=== PATIENT | male | born 1975 ===

== ENCOUNTER 2018-04-24 23:06 | Inpatient (IN) ==
[2018-04-24] MEDS ORDERED: MORPHINE 4 MG/1 ML VIAL IV STA (23:39)
[2018-04-24] MEDS ORDERED: ONDANSETRON 4 MG/2 ML VIAL IV ONE (23:39)
[2018-04-24] MEDS ORDERED: SODIUM CHLORIDE 0.9% 1,000 ML IV STA (23:39)
[2018-04-25 00:26] LABS: Basophils % 0.6 % (0.0-0.8); Eosinophils # 0.1 10*3/uL (0.0-0.87); Hemoglobin 12.7 GM/DL (14.0-18.0); Immature Granulocytes % 2.4 %; Immature Granulocytes Absolute 0.17 #; Lymphocytes # 2.2 10*3/uL (1.4-4.0); Lymphocytes % 31.1 % (21.2-54.2); Mean Corpuscular HGB Conc 34.3 GM/DL (32-36); Mean Corpuscular Hemoglobin 31 PG (27-34); Mean Corpuscular Volume 91.1 FL (87-102); Mean Platelet Volume 9.7 FL (9.6-12.0); Monocytes # 0.9 10*3/uL (0.11-0.8); Monocytes % 12.7 % (1.7-12.7); Neutrophils # 3.7 10*3/uL (1.4-7.4); Neutrophils % 52.2 % (38.7-73.9); Platelet Count 273 T/CUMM (130-400); Red Blood Count 4.06 MC/CUMM (3.8-5.5); Red Cell Distribution Width 13.4 % (9.3-17.3); White Blood Count 7.1 T/CUMM (4-12)
[2018-04-25 00:56] LABS: Alanine Aminotransferase 64 U/L (16-61); Albumin 3.4 G/DL (3.4-5.0); Alkaline Phosphatase 99 U/L (45-117); Aspartate Amino Transferase 29 U/L (0-37); Bilirubin,Total < 0.39 MG/DL (0.2-1.0); Blood Urea Nitrogen 7 MG/DL (7-18); Calcium 7.9 MG/DL (8.5-10.1); Glucose 317 MG/DL (74-106); Osmolality,Calculated 282.8 MOS/KG (273-304); Sodium 137 MMOL/L (136-145); Total Protein 7.7 G/DL (6.4-8.3)
[2018-04-25] MEDS ORDERED: MORPHINE 4 MG/1 ML VIAL IV STA (02:07)
[2018-04-25] MEDS ORDERED: PROMETHAZINE 25 MG/1 ML VIAL IM PRN (04:50)
[2018-04-25] MEDS ORDERED: DEXTROSE 50% 25 GM/50 ML VIAL IV PRN (04:50)
[2018-04-25] MEDS ORDERED: GLUCAGON 1 MG VIAL IM PRN (04:50)
[2018-04-25] MEDS ORDERED: LORazepam 2 MG/1 ML VIAL IV PRN (04:50)
[2018-04-25] MEDS ORDERED: amLODIPine 10 MG TABLET PO ONE (05:00)
[2018-04-25] MEDS: ONDANSETRON 4 MG/2 ML VIAL IV PRN ×3 (05:03→18:19)
[2018-04-25] MEDS: SODIUM CHLORIDE 0.9% 1,000 ML IV SCH ×2 (05:03→13:05)
[2018-04-25] MEDS: MORPHINE 4 MG/1 ML VIAL IV PRN ×6 (05:05→21:14)
[2018-04-25] MEDS: chlordiazePOXIDE 10 MG CAPSULE PO SCH ×4 (05:14→20:27)
[2018-04-25] MEDS ORDERED: PANTOPRAZOLE 40 MG VIAL IV SCH (05:30)
[2018-04-25] MEDS: INSULIN REGULAR 100 UNIT/ML SUBCUT SCH ×4 (06:15→18:23)
[2018-04-25] MEDS ORDERED: POTASSIUM CHLORIDE 20 MEQ TABLET PO PRN (06:33)
[2018-04-25 06:46] LABS: Hematocrit 33.9 VOL% (42.0-52.0); Hemoglobin 12.1 GM/DL (14.0-18.0)
[2018-04-25] MEDS ORDERED: metFORMIN 500 MG TABLET PO SCH (08:00)
[2018-04-25] MEDS: FOLIC ACID 1 MG TABLET PO SCH (08:42)
[2018-04-25] MEDS: THIAMINE 100 MG TABLET PO SCH (08:42)
[2018-04-25] MEDS: MULTIVITAMIN (BEROCCA) TABLET PO SCH (08:42)
[2018-04-25] MEDS ORDERED: MAGNESIUM SULF RIDER 4 GM in PREMIX 1 EACH IV PRN (09:12)
[2018-04-25] MEDS ORDERED: MAGNESIUM SULF RIDER 2 GM in PREMIX 1 EACH IV PRN (09:12)
[2018-04-25] MEDS: PANTOPRAZOLE INJ 200 MG in SODIUM CHLORIDE 0.9% 250 ML IV SCH (10:28)
[2018-04-25] MEDS: hydrALAZINE 20 MG/1 ML VIAL IV PRN (11:20)
[2018-04-25] MEDS: THIAMINE INJ 100 MG, FOLIC ACID INJ 1 MG, MAGNESIUM SULF INJ 2 GM, MULTIVITAMIN INJ 10 ... IV SCH (13:03)
[2018-04-25 21:12] LABS: Hematocrit 35.3 VOL% (42.0-52.0); Hemoglobin 12.1 GM/DL (14.0-18.0)
[2018-04-25 23:50] LABS: Apearance,Urine CLEAR (Clear); Bacteria,Urine Occasional /HPF (Few); Bilirubin,Urine Negative (Negative); Blood, Urine Negative (Negative); Glucose,Urine (UA) >=500 mg/dL (Negative); Ketones,Urine Negative (Negative); Mucus,Urine Occasional /LPF (Occasional); Nitrite,Urine Negative (Negative); Protein,Urine Negative; RBC,Urine <1 /HPF (0-4); Urine Color Yellow (Yellow); Urine Specific Gravity 1.015 (1.001-1.035); Urine Urobilinogen < 2.0 EU/DL (0.2-1.0); WBC,Urine 1 /HPF (0-6)
[2018-04-26] MEDS: MORPHINE 4 MG/1 ML VIAL IV PRN ×3 (00:10→06:10)
[2018-04-26] MEDS: INSULIN REGULAR 100 UNIT/ML SUBCUT SCH ×3 (00:24→12:44)
[2018-04-26] MEDS: SODIUM CHLORIDE 0.9% 1,000 ML IV SCH ×3 (00:26→16:52)
[2018-04-26] MEDS ORDERED: PROPOFOL 200 MG/20 ML VIAL IV ONE (02:49)
[2018-04-26] MEDS ORDERED: LIDOCAINE 100 MG/5 ML SYRINGE ONE (02:49)
[2018-04-26 05:53] LABS: Basophils % 0.7 % (0.0-0.8); Eosinophils # 0.1 10*3/uL (0.0-0.87); Eosinophils % 2.2 % (0.00-10.9); Hematocrit 34.4 VOL% (42.0-52.0); Immature Granulocytes % 1.1 %; Immature Granulocytes Absolute 0.05 #; Lymphocytes # 1.4 10*3/uL (1.4-4.0); Lymphocytes % 32.1 % (21.2-54.2); Mean Corpuscular HGB Conc 34.9 GM/DL (32-36); Mean Corpuscular Hemoglobin 32 PG (27-34); Mean Corpuscular Volume 90.8 FL (87-102); Mean Platelet Volume 9.4 FL (9.6-12.0); Monocytes # 0.6 10*3/uL (0.11-0.8); Monocytes % 12.4 % (1.7-12.7); Neutrophils # 2.3 10*3/uL (1.4-7.4); Neutrophils % 51.5 % (38.7-73.9); Platelet Count 202 T/CUMM (130-400); Red Blood Count 3.79 MC/CUMM (3.8-5.5); Red Cell Distribution Width 13.2 % (9.3-17.3); White Blood Count 4.5 T/CUMM (4-12)
[2018-04-26 06:25] LABS: Albumin 2.9 G/DL (3.4-5.0); Bilirubin,Total 0.4 MG/DL (0.2-1.0); Calcium 7.4 MG/DL (8.5-10.1); Osmolality,Calculated 277.4 MOS/KG (273-304); Total Protein 6.6 G/DL (6.4-8.3)
[2018-04-26] MEDS ORDERED: POTASSIUM PHOSPHATE 30 MMOL in SODIUM CHLORIDE 0.9% 250 ML IV ONE (07:22)
[2018-04-26] MEDS ORDERED: POTASSIUM CHLORIDE RIDER 10 MEQ in PREMIX 1 EACH IV STA (07:23)
[2018-04-26] MEDS: THIAMINE INJ 100 MG, FOLIC ACID INJ 1 MG, MAGNESIUM SULF INJ 2 GM, MULTIVITAMIN INJ 10 ... IV SCH (11:37)
[2018-04-26] MEDS ORDERED: BISACODYL 5 MG TABLET PO SCH (15:00)
[2018-04-26] MEDS ORDERED: MORPHINE 4 MG/1 ML VIAL IV PRN (16:01)
[2018-04-26] MEDS: FOLIC ACID 1 MG TABLET PO SCH (16:11)
[2018-04-26] MEDS: chlordiazePOXIDE 10 MG CAPSULE PO SCH ×2 (16:11→16:12)
[2018-04-26] MEDS: THIAMINE 100 MG TABLET PO SCH (16:12)
[2018-04-26] MEDS: MULTIVITAMIN (BEROCCA) TABLET PO SCH (16:12)
[2018-04-26] MEDS: hydrALAZINE 20 MG/1 ML VIAL IV PRN (16:48)
[2018-04-26] MEDS: PANTOPRAZOLE INJ 200 MG in SODIUM CHLORIDE 0.9% 250 ML IV SCH (16:54)
[2018-04-26 17:46] VITALS: BP 163/108
[2018-04-26] MEDS ORDERED: POLYETHYLENE GLYCOL POWDER 255 GM BOTTLE PO ONE (18:00)
[2018-04-26] MEDS ORDERED: MAGNESIUM CITRATE 300 ML BOTTLE PO ONE (21:00)
[2018-04-27] MEDS ORDERED: PANTOPRAZOLE 40 MG TABLET PO SCH (09:00)
== END 2018-04-26 17:43 | disposition left against medical advice (07) | DRG 378 ==
LOC: N.ED 23:06 → N.EDINP 04-25 02:49 → N.4E 04-25 04:06

== ENCOUNTER 2018-04-28 22:24 | Inpatient (IN) ==
[2018-04-28] MEDS ORDERED: PANTOPRAZOLE 40 MG VIAL IV STA (23:06)
[2018-04-28] MEDS ORDERED: ONDANSETRON 4 MG/2 ML VIAL IV STA (23:06)
[2018-04-28] MEDS ORDERED: SODIUM CHLORIDE 0.9% 500 ML IV STA (23:06)
[2018-04-28] MEDS ORDERED: HYDROmorphone 2 MG/1 ML VIAL IV STA (23:06)
[2018-04-29 00:51] LABS: Apearance,Urine CLEAR (Clear); Bilirubin,Urine Negative (Negative); Blood, Urine Negative (Negative); Glucose,Urine (UA) >=500 mg/dL (Negative); Ketones,Urine Negative (Negative); Mucus,Urine Occasional /LPF (Occasional); Nitrite,Urine Negative (Negative); Protein,Urine Negative; RBC,Urine 1 /HPF (0-4); Squamous Epithelial Cell,Urine Occasional /HPF (0-10); Urine Color Straw (Yellow); Urine Specific Gravity 1.012 (1.001-1.035); Urine Urobilinogen < 2.0 EU/DL (0.2-1.0); WBC,Urine <1 /HPF (0-6)
[2018-04-29 00:54] LABS: Ammonia 50 UMOL/L (11-32)
[2018-04-29 00:57] LABS: Basophils % 0.4 % (0.0-0.8); Eosinophils # 0.1 10*3/uL (0.0-0.87); Eosinophils % 1.2 % (0.00-10.9); Hematocrit 34.2 VOL% (42.0-52.0); Hemoglobin 11.7 GM/DL (14.0-18.0); Immature Granulocytes % 2.9 %; Lactic Acid 1.9 MMOL/L (0.4-2.0); Lymphocytes # 1.9 10*3/uL (1.4-4.0); Lymphocytes % 27.5 % (21.2-54.2); Mean Corpuscular HGB Conc 34.2 GM/DL (32-36); Mean Corpuscular Hemoglobin 32 PG (27-34); Mean Corpuscular Volume 92.9 FL (87-102); Mean Platelet Volume 9.9 FL (9.6-12.0); Monocytes # 0.6 10*3/uL (0.11-0.8); Monocytes % 9.1 % (1.7-12.7); Neutrophils % 58.9 % (38.7-73.9); Platelet Count 208 T/CUMM (130-400); Red Blood Count 3.68 MC/CUMM (3.8-5.5); Red Cell Distribution Width 13.6 % (9.3-17.3); White Blood Count 6.8 T/CUMM (4-12)
[2018-04-29 00:59] LABS: Alanine Aminotransferase 83 U/L (16-61); Albumin 3.1 G/DL (3.4-5.0); Alkaline Phosphatase 175 U/L (45-117); Amylase 35 U/L (25-115); Aspartate Amino Transferase 50 U/L (0-37); Bilirubin,Total < 0.39 MG/DL (0.2-1.0); Blood Urea Nitrogen 7 MG/DL (7-18); Glucose 395 MG/DL (74-106); Osmolality,Calculated 288.7 MOS/KG (273-304); Potassium 3.3 MMOL/L (3.5-5.1); Sodium 138 MMOL/L (136-145); Total Protein 7.3 G/DL (6.4-8.3); Troponin I Only < 0.015 NG/ML (0.00-0.045)
[2018-04-29 01:01] LABS: Barbiturates Screen,Urine Negative (Negative); Benzodiazepines Screen,Urine Positive (Negative); Cannabinoid Screen,Urine Negative (Negative); Opiate Screen,Urine Negative (Negative); Phencyclidine Screen,Urine Negative (Negative)
[2018-04-29] MEDS ORDERED: MAGNESIUM SULF RIDER 2 GM in PREMIX 1 EACH IV STA (01:15)
[2018-04-29] MEDS ORDERED: POTASSIUM CHLORIDE 20 MEQ TABLET PO STA (01:15)
[2018-04-29] MEDS ORDERED: POTASSIUM CHLORIDE RIDER 10 MEQ in PREMIX 1 EACH IV PRN (04:16)
[2018-04-29] MEDS ORDERED: GLUCAGON 1 MG VIAL IM PRN (04:16)
[2018-04-29] MEDS ORDERED: MAGNESIUM SULF RIDER 2 GM in PREMIX 1 EACH IV PRN (04:16)
[2018-04-29] MEDS ORDERED: DEXTROSE 50% 25 GM/50 ML VIAL IV PRN (04:16)
[2018-04-29] MEDS ORDERED: SODIUM CHLORIDE 0.9% 1,000 ML IV SCH (04:16)
[2018-04-29] MEDS ORDERED: ONDANSETRON 4 MG/2 ML VIAL IV PRN (04:16)
[2018-04-29] MEDS ORDERED: PROMETHAZINE 25 MG/1 ML VIAL IM PRN (04:16)
[2018-04-29] MEDS ORDERED: LORazepam 2 MG/1 ML VIAL IV PRN (04:16)
[2018-04-29] MEDS ORDERED: MAGNESIUM SULF RIDER 4 GM in PREMIX 1 EACH IV PRN (04:16)
[2018-04-29] MEDS: 1: THIAMINE INJ 100 MG, FOLIC ACID INJ 1 MG, MAGNESIUM SULF INJ 2 GM, MULTIVITAMIN INJ 1 IV SCH ×2 (06:05→15:37)
[2018-04-29] MEDS: INSULIN REGULAR 100 UNIT/ML SUBCUT SCH ×3 (06:35→19:14)
[2018-04-29] MEDS ORDERED: PANTOPRAZOLE 40 MG VIAL IV SCH (09:00)
[2018-04-29] MEDS ORDERED: THIAMINE INJ 100 MG, FOLIC ACID INJ 1 MG, MAGNESIUM SULF INJ 2 GM, MULTIVITAMIN INJ 10 ... IV SCH (09:00)
[2018-04-29] MEDS: BISACODYL 5 MG TABLET PO SCH ×2 (11:05→18:25)
[2018-04-29] MEDS: chlordiazePOXIDE 10 MG CAPSULE PO SCH ×2 (11:05→15:44)
[2018-04-29] MEDS ORDERED: ACETAMINOPHEN 500 MG TABLET PO PRN (13:42)
[2018-04-29] MEDS ORDERED: POLYETHYLENE GLYCOL POWDER 255 GM BOTTLE PO ONE (18:00)
[2018-04-29] MEDS: chlordiazePOXIDE 25 MG CAPSULE PO SCH ×2 (18:16→20:32)
[2018-04-29] MEDS ORDERED: MAGNESIUM CITRATE 300 ML BOTTLE PO ONE (21:00)
[2018-04-30] MEDS: 1: THIAMINE INJ 100 MG, FOLIC ACID INJ 1 MG, MAGNESIUM SULF INJ 2 GM, MULTIVITAMIN INJ 1 IV SCH ×3 (02:32→23:20)
[2018-04-30] MEDS: BISACODYL 5 MG TABLET PO SCH (02:33)
[2018-04-30] MEDS: INSULIN REGULAR 100 UNIT/ML SUBCUT SCH ×5 (02:41→23:40)
[2018-04-30 07:04] LABS: Calcium 7.5 MG/DL (8.5-10.1); Osmolality,Calculated 279.4 MOS/KG (273-304); Potassium 3.3 MMOL/L (3.5-5.1)
[2018-04-30 07:10] LABS: Bilirubin,Total 0.6 MG/DL (0.2-1.0); Calcium 7.6 MG/DL (8.5-10.1); Osmolality,Calculated 281.3 MOS/KG (273-304); Potassium 3.3 MMOL/L (3.5-5.1); Total Protein 6.7 G/DL (6.4-8.3)
[2018-04-30 07:55] LABS: Basophils % 0.5 % (0.0-0.8); Eosinophils # 0.1 10*3/uL (0.0-0.87); Eosinophils % 2.3 % (0.00-10.9); Hematocrit 33.7 VOL% (42.0-52.0); Hemoglobin 11.6 GM/DL (14.0-18.0); Immature Granulocytes % 1.6 %; Lymphocytes # 1.7 10*3/uL (1.4-4.0); Lymphocytes % 27.2 % (21.2-54.2); Mean Corpuscular HGB Conc 34.4 GM/DL (32-36); Mean Corpuscular Hemoglobin 32 PG (27-34); Mean Corpuscular Volume 92.3 FL (87-102); Mean Platelet Volume 10.2 FL (9.6-12.0); Monocytes # 0.6 10*3/uL (0.11-0.8); Monocytes % 9.5 % (1.7-12.7); Neutrophils # 3.6 10*3/uL (1.4-7.4); Neutrophils % 58.9 % (38.7-73.9); Platelet Count 202 T/CUMM (130-400); Red Blood Count 3.65 MC/CUMM (3.8-5.5); Red Cell Distribution Width 13.4 % (9.3-17.3); White Blood Count 6.1 T/CUMM (4-12)
[2018-04-30] MEDS ORDERED: LIDOCAINE 100 MG/5 ML SYRINGE ONE (08:18)
[2018-04-30] MEDS ORDERED: PROPOFOL 200 MG/20 ML VIAL IV ONE (08:18)
[2018-04-30] MEDS ORDERED: POTASSIUM CHLORIDE 20 MEQ TABLET PO ONE (08:55)
[2018-04-30] MEDS: chlordiazePOXIDE 25 MG CAPSULE PO SCH ×4 (10:08→21:38)
[2018-04-30] MEDS: PANTOPRAZOLE 40 MG TABLET PO SCH (10:08)
[2018-04-30] MEDS: LINACLOTIDE 145 MCG CAPSULE PO SCH (10:08)
[2018-04-30] MEDS: amLODIPine 10 MG TABLET PO SCH (13:14)
[2018-04-30] MEDS ORDERED: chlordiazePOXIDE 25 MG CAPSULE PO ONE (14:07)
[2018-05-01 05:25] LABS: Basophils % 0.3 % (0.0-0.8); Eosinophils # 0.1 10*3/uL (0.0-0.87); Eosinophils % 1.8 % (0.00-10.9); Hematocrit 33.7 VOL% (42.0-52.0); Hemoglobin 11.9 GM/DL (14.0-18.0); Immature Granulocytes % 1.6 %; Immature Granulocytes Absolute 0.11 #; Lymphocytes # 1.5 10*3/uL (1.4-4.0); Lymphocytes % 21.9 % (21.2-54.2); Mean Corpuscular HGB Conc 35.3 GM/DL (32-36); Mean Corpuscular Hemoglobin 31 PG (27-34); Mean Corpuscular Volume 88.9 FL (87-102); Mean Platelet Volume 9.9 FL (9.6-12.0); Monocytes # 0.6 10*3/uL (0.11-0.8); Monocytes % 8.7 % (1.7-12.7); Neutrophils # 4.5 10*3/uL (1.4-7.4); Neutrophils % 65.7 % (38.7-73.9); Platelet Count 183 T/CUMM (130-400); Red Blood Count 3.79 MC/CUMM (3.8-5.5); Red Cell Distribution Width 13.2 % (9.3-17.3); White Blood Count 6.8 T/CUMM (4-12)
[2018-05-01] MEDS: INSULIN REGULAR 100 UNIT/ML SUBCUT SCH ×2 (06:02→12:47)
[2018-05-01] MEDS: LINACLOTIDE 145 MCG CAPSULE PO SCH (06:31)
[2018-05-01] MEDS: chlordiazePOXIDE 25 MG CAPSULE PO SCH ×2 (06:31→14:49)
[2018-05-01] MEDS: 1: THIAMINE INJ 100 MG, FOLIC ACID INJ 1 MG, MAGNESIUM SULF INJ 2 GM, MULTIVITAMIN INJ 1 IV SCH (08:50)
[2018-05-01] MEDS: amLODIPine 10 MG TABLET PO SCH (08:51)
[2018-05-01] MEDS: PANTOPRAZOLE 40 MG TABLET PO SCH (08:51)
[2018-05-01 17:57] VITALS: BP 98/65
== END 2018-05-01 17:58 | disposition left against medical advice (07) | DRG 392 ==
LOC: EDUNIT# → EDBD → N.ED 22:24 → SUATTDRO 04-29 02:01 → N.EDINP 04-29 02:01 → N.5E 04-29 03:42
PROVIDERS: ADMIT Internal Medicine; ATTEND Internal Medicine

== ENCOUNTER 2018-05-09 19:35 | Inpatient (IN) ==
[2018-05-09] MEDS ORDERED: DIPHENOXYLATE/ATROPINE 2.5-0.025 MG TABLET PO STA (21:29)
[2018-05-09] MEDS ORDERED: ONDANSETRON ODT 4 MG TABLET PO STA (21:30)
[2018-05-09 21:33] LABS: Basophils % 0.6 % (0.0-0.8); Eosinophils # 0.1 10*3/uL (0.0-0.87); Eosinophils % 1.5 % (0.00-10.9); Hematocrit 36.2 VOL% (42.0-52.0); Hemoglobin 12.3 GM/DL (14.0-18.0); Immature Granulocytes % 2.5 %; Immature Granulocytes Absolute 0.12 #; Lymphocytes # 1.4 10*3/uL (1.4-4.0); Lymphocytes % 30.3 % (21.2-54.2); Mean Corpuscular Hemoglobin 32 PG (27-34); Mean Platelet Volume 9.7 FL (9.6-12.0); Monocytes # 0.6 10*3/uL (0.11-0.8); Monocytes % 13.4 % (1.7-12.7); Neutrophils # 2.5 10*3/uL (1.4-7.4); Neutrophils % 51.7 % (38.7-73.9); Platelet Count 243 T/CUMM (130-400); Red Blood Count 3.85 MC/CUMM (3.8-5.5); Red Cell Distribution Width 14.1 % (9.3-17.3); White Blood Count 4.8 T/CUMM (4-12)
[2018-05-09 21:38] LABS: Apearance,Urine CLEAR (Clear); Bacteria,Urine Occasional /HPF (Few); Bilirubin,Urine Negative (Negative); Blood, Urine Small mg/dL (Negative); Glucose,Urine (UA) >=500 mg/dL (Negative); Ketones,Urine Negative (Negative); Mucus,Urine Occasional /LPF (Occasional); Nitrite,Urine Negative (Negative); Protein,Urine Negative; RBC,Urine 1 /HPF (0-4); Squamous Epithelial Cell,Urine Occasional /HPF (0-10); Urine Color Straw (Yellow); Urine Specific Gravity 1.025 (1.001-1.035); Urine Urobilinogen < 2.0 EU/DL (0.2-1.0); WBC,Urine 7 /HPF (0-6)
[2018-05-09 21:46] LABS: Barbiturates Screen,Urine Negative (Negative); Benzodiazepines Screen,Urine Positive (Negative); Cannabinoid Screen,Urine Negative (Negative); Opiate Screen,Urine Negative (Negative); Phencyclidine Screen,Urine Negative (Negative)
[2018-05-09 22:05] LABS: Albumin 3.6 G/DL (3.4-5.0); Bilirubin,Total 0.5 MG/DL (0.2-1.0); Calcium 8.1 MG/DL (8.5-10.1); Osmolality,Calculated 300.5 MOS/KG (273-304); Potassium 3.8 MMOL/L (3.5-5.1); Total Protein 7.6 G/DL (6.4-8.3)
[2018-05-09] MEDS ORDERED: SODIUM CHLORIDE 0.9% 1,000 ML IV STA (22:08)
[2018-05-09] MEDS ORDERED: INSULIN REGULAR 100 UNIT/ML IV STA (22:09)
[2018-05-09] MEDS ORDERED: INSULIN REGULAR 100 UNIT/ML ONE (22:13)
[2018-05-09] MEDS ORDERED: AMPICILLIN/SULBACTAM 3,000 MG in SODIUM CHLORIDE 0.9% 100 ML IV STA (22:40)
[2018-05-09] MEDS ORDERED: MORPHINE 4 MG/1 ML VIAL IV PRN (22:42)
[2018-05-09] MEDS ORDERED: BISACODYL 5 MG TABLET PO PRN (22:42)
[2018-05-09] MEDS ORDERED: DOCUSATE SODIUM 100 MG CAPSULE PO PRN (22:42)
[2018-05-09] MEDS ORDERED: INSULIN REGULAR 100 UNIT/ML IV ONE (22:44)
[2018-05-09] MEDS ORDERED: DEXTROSE 50% 25 GM/50 ML VIAL IV PRN (22:44)
[2018-05-09] MEDS ORDERED: GLUCAGON 1 MG VIAL IM PRN (22:44)
[2018-05-09] MEDS ORDERED: INSULIN REGULAR 100 UNIT/ML SUBCUT ONE (22:44)
[2018-05-09] MEDS ORDERED: LORazepam 2 MG/1 ML VIAL IV PRN (22:49)
[2018-05-09] MEDS ORDERED: ACETAMINOPHEN 325 MG TABLET PO PRN (22:49)
[2018-05-09] MEDS ORDERED: ONDANSETRON ODT 4 MG TABLET PO PRN (22:49)
[2018-05-09] MEDS ORDERED: AMPICILLIN/SULBACTAM 3,000 MG VIAL ONE (23:06)
[2018-05-10] MEDS: MORPHINE 4 MG/1 ML VIAL IV PRN ×6 (01:29→23:37)
[2018-05-10] MEDS: cefTRIAXone 1,000 MG in SYRINGE 1 EACH IV SCH ×2 (01:32→23:34)
[2018-05-10] MEDS: FOLIC ACID 1 MG TABLET PO SCH ×2 (01:32→20:56)
[2018-05-10] MEDS: INSULIN LISPRO 100 UNIT/ML SUBCUT SCH ×3 (01:35→20:55)
[2018-05-10] MEDS: ONDANSETRON 4 MG/2 ML VIAL IV PRN ×2 (01:36→06:37)
[2018-05-10] MEDS: SODIUM CHLORIDE 0.9% 1,000 ML IV SCH ×4 (01:39→20:56)
[2018-05-10 07:07] LABS: Basophils % 0.5 % (0.0-0.8); Eosinophils # 0.1 10*3/uL (0.0-0.87); Eosinophils % 1.6 % (0.00-10.9); Hematocrit 32.7 VOL% (42.0-52.0); Hemoglobin 11.2 GM/DL (14.0-18.0); Immature Granulocytes % 1.6 %; Lymphocytes # 1.6 10*3/uL (1.4-4.0); Lymphocytes % 24.6 % (21.2-54.2); Mean Corpuscular HGB Conc 34.3 GM/DL (32-36); Mean Corpuscular Hemoglobin 32 PG (27-34); Mean Corpuscular Volume 92.4 FL (87-102); Mean Platelet Volume 9.6 FL (9.6-12.0); Monocytes # 0.8 10*3/uL (0.11-0.8); Monocytes % 12.4 % (1.7-12.7); Neutrophils # 3.7 10*3/uL (1.4-7.4); Neutrophils % 59.3 % (38.7-73.9); Platelet Count 212 T/CUMM (130-400); Red Blood Count 3.54 MC/CUMM (3.8-5.5); Red Cell Distribution Width 14.1 % (9.3-17.3); White Blood Count 6.3 T/CUMM (4-12)
[2018-05-10 07:46] LABS: Albumin 2.9 G/DL (3.4-5.0); Bilirubin,Total 0.6 MG/DL (0.2-1.0); Calcium 7.9 MG/DL (8.5-10.1); Osmolality,Calculated 276.5 MOS/KG (273-304); Potassium 3.3 MMOL/L (3.5-5.1); Total Protein 6.6 G/DL (6.4-8.3)
[2018-05-10] MEDS ORDERED: INSULIN LISPRO 100 UNIT/ML SUBCUT SCH (08:00)
[2018-05-10] MEDS ORDERED: metFORMIN 500 MG TABLET PO SCH (08:00)
[2018-05-10] MEDS ORDERED: GLUCAGON 1 MG VIAL IM PRN (08:49)
[2018-05-10] MEDS ORDERED: DEXTROSE 50% 25 GM/50 ML VIAL IV PRN (08:49)
[2018-05-10] MEDS: PANTOPRAZOLE 40 MG TABLET PO SCH (09:30)
[2018-05-10] MEDS: THIAMINE 200 MG/2 ML VIAL IV SCH (09:30)
[2018-05-10] MEDS: MULTIVITAMIN (CENTRUM) TABLET PO SCH (09:30)
[2018-05-10] MEDS: chlordiazePOXIDE 25 MG CAPSULE PO SCH ×3 (09:30→20:56)
[2018-05-10] MEDS: ENOXAPARIN 40 MG/0.4 ML SYRINGE SUBCUT SCH ×2 (09:30→09:45)
[2018-05-10] MEDS: amLODIPine 5 MG TABLET PO SCH (09:37)
[2018-05-10] MEDS: POTASSIUM CHLORIDE RIDER 10 MEQ in PREMIX 1 EACH IV SCH ×4 (09:38→14:45)
[2018-05-10] MEDS ORDERED: MAGNESIUM SULF RIDER 2 GM in PREMIX 1 EACH IV ONE (21:00)
[2018-05-11] MEDS: INSULIN LISPRO 100 UNIT/ML SUBCUT SCH ×5 (00:38→23:59)
[2018-05-11] MEDS: SODIUM CHLORIDE 0.9% 1,000 ML IV SCH ×3 (02:11→18:16)
[2018-05-11] MEDS: MORPHINE 4 MG/1 ML VIAL IV PRN ×5 (03:21→22:23)
[2018-05-11 06:30] LABS: Basophils % 0.4 % (0.0-0.8); Eosinophils # 0.1 10*3/uL (0.0-0.87); Eosinophils % 2.7 % (0.00-10.9); Hematocrit 33.2 VOL% (42.0-52.0); Hemoglobin 11.4 GM/DL (14.0-18.0); Immature Granulocytes % 2.1 %; Lymphocytes # 1.3 10*3/uL (1.4-4.0); Lymphocytes % 26.6 % (21.2-54.2); Mean Corpuscular HGB Conc 34.3 GM/DL (32-36); Mean Corpuscular Hemoglobin 31 PG (27-34); Mean Corpuscular Volume 91.2 FL (87-102); Mean Platelet Volume 9.6 FL (9.6-12.0); Monocytes # 0.6 10*3/uL (0.11-0.8); Monocytes % 13.1 % (1.7-12.7); Neutrophils # 2.6 10*3/uL (1.4-7.4); Neutrophils % 55.1 % (38.7-73.9); Platelet Count 218 T/CUMM (130-400); Red Blood Count 3.64 MC/CUMM (3.8-5.5); Red Cell Distribution Width 13.8 % (9.3-17.3); White Blood Count 4.7 T/CUMM (4-12)
[2018-05-11 07:23] LABS: Calcium 7.6 MG/DL (8.5-10.1); Osmolality,Calculated 272.1 MOS/KG (273-304); Potassium 3.5 MMOL/L (3.5-5.1)
[2018-05-11] MEDS: THIAMINE 200 MG/2 ML VIAL IV SCH (09:33)
[2018-05-11] MEDS: chlordiazePOXIDE 25 MG CAPSULE PO SCH ×3 (09:34→20:11)
[2018-05-11] MEDS: MULTIVITAMIN (CENTRUM) TABLET PO SCH (09:34)
[2018-05-11] MEDS: PANTOPRAZOLE 40 MG TABLET PO SCH (09:34)
[2018-05-11] MEDS: ENOXAPARIN 40 MG/0.4 ML SYRINGE SUBCUT SCH (09:35)
[2018-05-11] MEDS: amLODIPine 5 MG TABLET PO SCH (09:35)
[2018-05-11] MEDS: LISINOPRIL 10 MG TABLET PO SCH ×2 (09:40→20:11)
[2018-05-11] MEDS: FOLIC ACID 1 MG TABLET PO SCH (20:11)
[2018-05-11] MEDS: cefTRIAXone 1,000 MG in SYRINGE 1 EACH IV SCH (22:29)
[2018-05-12] MEDS: SODIUM CHLORIDE 0.9% 1,000 ML IV SCH ×3 (01:56→18:42)
[2018-05-12] MEDS: MORPHINE 4 MG/1 ML VIAL IV PRN ×4 (02:32→15:00)
[2018-05-12] MEDS: INSULIN LISPRO 100 UNIT/ML SUBCUT SCH ×3 (06:26→18:08)
[2018-05-12] MEDS ORDERED: FLUCONAZOLE 100 MG TABLET PO SCH (09:00)
[2018-05-12] MEDS: amLODIPine 5 MG TABLET PO SCH (09:52)
[2018-05-12] MEDS: ENOXAPARIN 40 MG/0.4 ML SYRINGE SUBCUT SCH ×2 (09:52→09:59)
[2018-05-12] MEDS: PANTOPRAZOLE 40 MG TABLET PO SCH (09:52)
[2018-05-12] MEDS: chlordiazePOXIDE 25 MG CAPSULE PO SCH ×3 (09:52→20:52)
[2018-05-12] MEDS: LISINOPRIL 10 MG TABLET PO SCH ×2 (09:52→20:52)
[2018-05-12] MEDS: MULTIVITAMIN (CENTRUM) TABLET PO SCH (09:52)
[2018-05-12] MEDS: THIAMINE 200 MG/2 ML VIAL IV SCH (09:52)
[2018-05-12] MEDS: FLUCONAZOLE INJ 100 MG in IV BAG 1 EACH IV SCH (09:53)
[2018-05-12] MEDS: METOCLOPRAMIDE 10 MG/2 ML VIAL IV SCH (18:17)
[2018-05-12] MEDS: PANTOPRAZOLE 40 MG VIAL IV SCH (20:52)
[2018-05-12] MEDS: FOLIC ACID 1 MG TABLET PO SCH (20:52)
[2018-05-12] MEDS: cefTRIAXone 1,000 MG in SYRINGE 1 EACH IV SCH (22:38)
[2018-05-13] MEDS: METOCLOPRAMIDE 10 MG/2 ML VIAL IV SCH ×4 (00:33→19:03)
[2018-05-13] MEDS: INSULIN LISPRO 100 UNIT/ML SUBCUT SCH ×4 (00:33→19:03)
[2018-05-13] MEDS: SODIUM CHLORIDE 0.9% 1,000 ML IV SCH ×3 (03:28→19:03)
[2018-05-13 04:20] LABS: Basophils % 0.2 % (0.0-0.8); Eosinophils # 0.1 10*3/uL (0.0-0.87); Eosinophils % 2.3 % (0.00-10.9); Hematocrit 31.6 VOL% (42.0-52.0); Hemoglobin 10.9 GM/DL (14.0-18.0); Immature Granulocytes % 3.9 %; Immature Granulocytes Absolute 0.17 #; Lymphocytes # 0.8 10*3/uL (1.4-4.0); Lymphocytes % 18.2 % (21.2-54.2); Mean Corpuscular HGB Conc 34.5 GM/DL (32-36); Mean Corpuscular Hemoglobin 32 PG (27-34); Mean Corpuscular Volume 92.4 FL (87-102); Monocytes # 0.5 10*3/uL (0.11-0.8); Monocytes % 11.3 % (1.7-12.7); Neutrophils # 2.8 10*3/uL (1.4-7.4); Neutrophils % 64.1 % (38.7-73.9); Platelet Count 224 T/CUMM (130-400); Red Blood Count 3.42 MC/CUMM (3.8-5.5); Red Cell Distribution Width 13.8 % (9.3-17.3); White Blood Count 4.3 T/CUMM (4-12)
[2018-05-13 05:02] LABS: Alanine Aminotransferase 29 U/L (16-61); Albumin 2.3 G/DL (3.4-5.0); Alkaline Phosphatase 61 U/L (45-117); Amylase 21 U/L (25-115); Aspartate Amino Transferase 21 U/L (0-37); Bilirubin,Direct < 0.100 MG/DL (0.0-0.20); Bilirubin,Indirect 0.3 MG/DL (0.0-1.0); Bilirubin,Total < 0.39 MG/DL (0.2-1.0); Blood Urea Nitrogen 3 MG/DL (7-18); Calcium 6.8 MG/DL (8.5-10.1); Glucose 100 MG/DL (74-106); Osmolality,Calculated 282.8 MOS/KG (273-304); Potassium 2.9 MMOL/L (3.5-5.1); Sodium 144 MMOL/L (136-145); Total Protein 5.6 G/DL (6.4-8.3)
[2018-05-13] MEDS ORDERED: POTASSIUM CHLORIDE 20 MEQ TABLET PO ONE (06:03)
[2018-05-13] MEDS ORDERED: KETOROLAC 15 MG/1 ML VIAL IV PRN (07:54)
[2018-05-13] MEDS: MULTIVITAMIN (CENTRUM) TABLET PO SCH (09:29)
[2018-05-13] MEDS: POTASSIUM CHLORIDE RIDER 10 MEQ in PREMIX 1 EACH IV SCH ×2 (09:29→10:38)
[2018-05-13] MEDS: PANTOPRAZOLE 40 MG VIAL IV SCH (09:29)
[2018-05-13] MEDS: LISINOPRIL 10 MG TABLET PO SCH (09:29)
[2018-05-13] MEDS: amLODIPine 5 MG TABLET PO SCH (09:29)
[2018-05-13] MEDS: chlordiazePOXIDE 25 MG CAPSULE PO SCH ×2 (09:29→15:22)
[2018-05-13] MEDS: THIAMINE 200 MG/2 ML VIAL IV SCH (09:30)
[2018-05-13] MEDS: ENOXAPARIN 40 MG/0.4 ML SYRINGE SUBCUT SCH (09:30)
[2018-05-13] MEDS: FLUCONAZOLE INJ 100 MG in IV BAG 1 EACH IV SCH (10:37)
[2018-05-13] MEDS: POTASSIUM CHLORIDE 20 MEQ TABLET PO PRN ×3 (10:40→15:22)
[2018-05-13 16:14] VITALS: BP 125/75
== END 2018-05-13 17:15 | disposition left against medical advice (07) | DRG 74 ==
LOC: N.ED 19:35 → N.EDINP 22:42 → N.5E 23:53

== ENCOUNTER 2018-05-17 15:45 | Observation (INO) ==
[2018-05-17] MEDS ORDERED: AMMONIA INHALANT 1 EACH AMP INH ONE (15:54)
[2018-05-17] MEDS ORDERED: THIAMINE INJ 100 MG, FOLIC ACID INJ 1 MG, MAGNESIUM SULF INJ 2 GM, MULTIVITAMIN INJ 10 ... IV ONE (15:56)
[2018-05-17 16:12] LABS: Basophils % 0.7 % (0.0-0.8); Eosinophils # 0.1 10*3/uL (0.0-0.87); Eosinophils % 0.9 % (0.00-10.9); Hematocrit 36.1 VOL% (42.0-52.0); Hemoglobin 12.4 GM/DL (14.0-18.0); Immature Granulocytes % 1.4 %; Immature Granulocytes Absolute 0.08 #; Lymphocytes # 1.9 10*3/uL (1.4-4.0); Lymphocytes % 32.9 % (21.2-54.2); Mean Corpuscular HGB Conc 34.3 GM/DL (32-36); Mean Corpuscular Hemoglobin 32 PG (27-34); Mean Corpuscular Volume 92.1 FL (87-102); Mean Platelet Volume 9.7 FL (9.6-12.0); Monocytes # 0.9 10*3/uL (0.11-0.8); Monocytes % 14.9 % (1.7-12.7); Neutrophils # 2.9 10*3/uL (1.4-7.4); Neutrophils % 49.2 % (38.7-73.9); Platelet Count 263 T/CUMM (130-400); Red Blood Count 3.92 MC/CUMM (3.8-5.5); Red Cell Distribution Width 13.5 % (9.3-17.3); White Blood Count 5.8 T/CUMM (4-12)
[2018-05-17 16:29] LABS: Ammonia 43 UMOL/L (11-32)
[2018-05-17 16:35] LABS: Alanine Aminotransferase 56 U/L (16-61); Albumin 3.6 G/DL (3.4-5.0); Alkaline Phosphatase 113 U/L (45-117); Aspartate Amino Transferase 31 U/L (0-37); Bilirubin,Total < 0.39 MG/DL (0.2-1.0); Blood Urea Nitrogen 6 MG/DL (7-18); Calcium 8.3 MG/DL (8.5-10.1); Glucose 425 MG/DL (74-106); Osmolality,Calculated 288.8 MOS/KG (273-304); Potassium 3.6 MMOL/L (3.5-5.1); Sodium 137 MMOL/L (136-145); Troponin I < 0.015 NG/ML (0.00-0.045)
[2018-05-17 16:47] LABS: PT Patient Result 10.3 SECS; Partial Thromboplastin Time 26.8 SECS (0-40)
[2018-05-17 17:04] LABS: Apearance,Urine CLEAR (Clear); Bilirubin,Urine Negative (Negative); Blood, Urine Negative (Negative); Glucose,Urine (UA) >=500 mg/dL (Negative); Ketones,Urine Negative (Negative); Mucus,Urine Occasional /LPF (Occasional); Nitrite,Urine Negative (Negative); Protein,Urine Negative; Squamous Epithelial Cell,Urine Occasional /HPF (0-10); Urine Color Colorless (Yellow); Urine Specific Gravity 1.007 (1.001-1.035); Urine Urobilinogen < 2.0 EU/DL (0.2-1.0)
[2018-05-17] MEDS ORDERED: ONDANSETRON 4 MG/2 ML VIAL IV PRN (17:19)
[2018-05-17] MEDS ORDERED: DEXTROSE 50% 25 GM/50 ML VIAL IV PRN (17:24)
[2018-05-17] MEDS ORDERED: GLUCAGON 1 MG VIAL IM PRN (17:24)
[2018-05-17] MEDS ORDERED: LORazepam 2 MG/1 ML VIAL IV PRN (17:25)
[2018-05-17 17:27] LABS: Barbiturates Screen,Urine Negative (Negative); Benzodiazepines Screen,Urine Positive (Negative); Cannabinoid Screen,Urine Negative (Negative); Opiate Screen,Urine Negative (Negative); Phencyclidine Screen,Urine Negative (Negative)
[2018-05-17] MEDS ORDERED: SODIUM CHLORIDE 0.9% 1,000 ML IV ONE (18:20)
[2018-05-17 18:48] LABS: Folate 18.8 NG/ML (5.4-24.0)
[2018-05-17] MEDS ORDERED: THIAMINE INJ 100 MG, FOLIC ACID INJ 1 MG, MULTIVITAMIN INJ 10 ML in SODIUM CHLORIDE 0.9... IV ONE (19:30)
[2018-05-17] MEDS: metFORMIN 500 MG TABLET PO SCH (20:08)
[2018-05-17] MEDS: ALBUTEROL/IPRATROPIUM 3 ML NEB RESP TX SCH (20:45)
[2018-05-17] MEDS ORDERED: chlordiazePOXIDE 25 MG CAPSULE PO SCH (21:00)
[2018-05-17] MEDS: INSULIN REGULAR 100 UNIT/ML SUBCUT SCH (21:39)
[2018-05-17] MEDS: PANTOPRAZOLE 40 MG TABLET PO SCH (21:39)
[2018-05-17] MEDS: LACTULOSE 20 GM/30 ML UDCUP PO SCH (21:39)
[2018-05-17] MEDS: INSULIN GLARGINE 100 UNIT/ML SUBCUT SCH (21:40)
[2018-05-17] MEDS: chlordiazePOXIDE 25 MG CAPSULE PO SCH (21:44)
[2018-05-18] MEDS: chlordiazePOXIDE 25 MG CAPSULE PO SCH ×4 (03:51→20:42)
[2018-05-18 04:22] LABS: Basophils % 0.7 % (0.0-0.8); Eosinophils # 0.1 10*3/uL (0.0-0.87); Eosinophils % 2.4 % (0.00-10.9); Hematocrit 31.8 VOL% (42.0-52.0); Hemoglobin 11.1 GM/DL (14.0-18.0); Immature Granulocytes % 1.7 %; Immature Granulocytes Absolute 0.05 #; Lymphocytes # 1.2 10*3/uL (1.4-4.0); Lymphocytes % 41.4 % (21.2-54.2); Mean Corpuscular HGB Conc 34.9 GM/DL (32-36); Mean Corpuscular Hemoglobin 32 PG (27-34); Mean Corpuscular Volume 91.1 FL (87-102); Mean Platelet Volume 9.9 FL (9.6-12.0); Monocytes # 0.6 10*3/uL (0.11-0.8); Neutrophils % 32.8 % (38.7-73.9); Platelet Count 211 T/CUMM (130-400); Red Blood Count 3.49 MC/CUMM (3.8-5.5); Red Cell Distribution Width 13.6 % (9.3-17.3); White Blood Count 2.9 T/CUMM (4-12)
[2018-05-18 04:52] LABS: Band Neutrophils 2 % (0-10); Eosinophils 5 % (0-10); Hypochromasia 1+; Lymphocytes 37 % (20-55); Platelet Estimate Adequate; Segmented Neutrophils 36 % (50-85); Total Cells Counted 100
[2018-05-18 05:07] LABS: Albumin 2.9 G/DL (3.4-5.0); Bilirubin,Total 0.4 MG/DL (0.2-1.0); Osmolality,Calculated 289.8 MOS/KG (273-304); Potassium 3.4 MMOL/L (3.5-5.1); Risk Ratio 5.2; Thyroid Stimulating Hormone 0.837 uIU/ml (0.358-3.74); Total Protein 6.6 G/DL (6.4-8.3); VLDL CHOLESTEROL 99.8 MG/DL
[2018-05-18] MEDS: ALBUTEROL/IPRATROPIUM 3 ML NEB RESP TX SCH ×4 (07:20→19:16)
[2018-05-18] MEDS: SODIUM CHLORIDE 0.9% 1,000 ML IV SCH ×4 (08:59→21:39)
[2018-05-18] MEDS ORDERED: POTASSIUM CHLORIDE 20 MEQ TABLET PO ONE (09:00)
[2018-05-18] MEDS ORDERED: PANTOPRAZOLE 40 MG TABLET PO SCH (09:00)
[2018-05-18] MEDS ORDERED: MULTIVITAMIN (CENTRUM) TABLET PO SCH (09:00)
[2018-05-18] MEDS: INSULIN REGULAR 100 UNIT/ML SUBCUT SCH ×4 (09:13→20:48)
[2018-05-18] MEDS: LACTULOSE 20 GM/30 ML UDCUP PO SCH ×3 (09:13→20:41)
[2018-05-18] MEDS: metFORMIN 500 MG TABLET PO SCH ×2 (09:41→17:07)
[2018-05-18] MEDS: GLIMEPIRIDE 2 MG TABLET PO SCH (09:41)
[2018-05-18] MEDS: FOLIC ACID 1 MG TABLET PO SCH (09:42)
[2018-05-18] MEDS: SUCRALFATE 1 GM/10 ML UDCUP PO SCH ×4 (09:42→20:41)
[2018-05-18] MEDS: PANTOPRAZOLE 40 MG TABLET PO SCH ×2 (09:42→20:42)
[2018-05-18] MEDS: MULTIVITAMIN (CENTRUM) TABLET PO SCH (09:42)
[2018-05-18] MEDS: THIAMINE 100 MG TABLET PO SCH (09:42)
[2018-05-18] MEDS: CYANOCOBALAMIN 1000 MCG/1 ML VIAL IM SCH ×2 (09:43→09:47)
[2018-05-18] MEDS: INSULIN GLARGINE 100 UNIT/ML SUBCUT SCH (21:08)
[2018-05-19] MEDS: ALBUTEROL/IPRATROPIUM 3 ML NEB RESP TX SCH ×2 (00:42→08:33)
[2018-05-19] MEDS: chlordiazePOXIDE 25 MG CAPSULE PO SCH ×3 (03:03→09:39)
[2018-05-19] MEDS: SODIUM CHLORIDE 0.9% 1,000 ML IV SCH (04:03)
[2018-05-19 06:27] LABS: Calcium 7.9 MG/DL (8.5-10.1); Osmolality,Calculated 281.3 MOS/KG (273-304); Potassium 3.1 MMOL/L (3.5-5.1)
[2018-05-19 07:51] VITALS: BP 121/78
[2018-05-19] MEDS: PANTOPRAZOLE 40 MG TABLET PO SCH ×2 (08:50→09:39)
[2018-05-19] MEDS: SUCRALFATE 1 GM/10 ML UDCUP PO SCH ×2 (08:50→09:38)
[2018-05-19] MEDS: INSULIN REGULAR 100 UNIT/ML SUBCUT SCH ×2 (08:50→09:38)
[2018-05-19] MEDS: MULTIVITAMIN (CENTRUM) TABLET PO SCH ×2 (08:50→09:38)
[2018-05-19] MEDS: metFORMIN 500 MG TABLET PO SCH ×2 (08:50→09:38)
[2018-05-19] MEDS: THIAMINE 100 MG TABLET PO SCH ×2 (08:50→09:39)
[2018-05-19] MEDS: GLIMEPIRIDE 2 MG TABLET PO SCH ×2 (08:50→09:38)
[2018-05-19] MEDS: LACTULOSE 20 GM/30 ML UDCUP PO SCH ×2 (08:50→09:38)
[2018-05-19] MEDS: FOLIC ACID 1 MG TABLET PO SCH ×2 (08:50→09:38)
[2018-05-19] MEDS: POTASSIUM CHLORIDE 20 MEQ TABLET PO SCH ×2 (08:53→09:38)
[2018-05-19] MEDS ORDERED: LIPASE/PROTEASE/AMYLASE 4,200 UNITS CAPSULE PO SCH (09:00)
[2018-05-19] MEDS: CYANOCOBALAMIN 1000 MCG/1 ML VIAL IM SCH (09:02)
== END 2018-05-19 10:46 | disposition left against medical advice (07) ==
LOC: N.EDINP 15:45 → N.ED 15:45 → N.2E 18:34
PROVIDERS: ADMIT Internal Medicine; ATTEND Internal Medicine

== ENCOUNTER 2018-05-19 20:30 | Inpatient (IN) ==
[2018-05-19] MEDS ORDERED: THIAMINE INJ 100 MG, FOLIC ACID INJ 1 MG, MAGNESIUM SULF INJ 2 GM, MULTIVITAMIN INJ 10 ... IV STA (23:15)
[2018-05-19] MEDS ORDERED: ONDANSETRON 4 MG/2 ML VIAL IV STA (23:17)
[2018-05-20 00:37] LABS: Basophils % 0.8 % (0.0-0.8); Eosinophils # 0.1 10*3/uL (0.0-0.87); Eosinophils % 2.1 % (0.00-10.9); Hematocrit 37.1 VOL% (42.0-52.0); Hemoglobin 12.3 GM/DL (14.0-18.0); Immature Granulocytes % 3.3 %; Immature Granulocytes Absolute 0.13 #; Lymphocytes # 1.6 10*3/uL (1.4-4.0); Lymphocytes % 41.4 % (21.2-54.2); Mean Corpuscular HGB Conc 33.2 GM/DL (32-36); Mean Corpuscular Hemoglobin 31 PG (27-34); Mean Corpuscular Volume 94.2 FL (87-102); Mean Platelet Volume 9.5 FL (9.6-12.0); Monocytes # 0.6 10*3/uL (0.11-0.8); Monocytes % 14.4 % (1.7-12.7); NRBC # 0.02 10*3/uL; Neutrophils # 1.5 10*3/uL (1.4-7.4); Platelet Count 243 T/CUMM (130-400); Red Blood Count 3.94 MC/CUMM (3.8-5.5); Red Cell Distribution Width 13.6 % (9.3-17.3); White Blood Count 3.9 T/CUMM (4-12)
[2018-05-20] MEDS ORDERED: SODIUM CHLORIDE 0.9% 1,000 ML IV STA (00:59)
[2018-05-20 01:26] LABS: Alanine Aminotransferase 42 U/L (16-61); Albumin 3.2 G/DL (3.4-5.0); Alkaline Phosphatase 107 U/L (45-117); Aspartate Amino Transferase 28 U/L (0-37); Bilirubin,Total < 0.39 MG/DL (0.2-1.0); Blood Urea Nitrogen 7 MG/DL (7-18); Calcium 8.3 MG/DL (8.5-10.1); Glucose 268 MG/DL (74-106); Osmolality,Calculated 294.7 MOS/KG (273-304); Potassium 3.7 MMOL/L (3.5-5.1); Sodium 145 MMOL/L (136-145); Total Protein 7.5 G/DL (6.4-8.3)
[2018-05-20 01:54] LABS: Eosinophils 1 % (0-10); Hypochromasia Slight; Lymphocytes 51 % (20-55); Myelocytes 1 %; Platelet Estimate Normal; Reactive Lymphocytes 2+; Segmented Neutrophils 39 % (50-85); Total Cells Counted 100
[2018-05-20] MEDS ORDERED: HALOPERIDOL 5 MG/ML AMP IV STA ×2 (02:20→02:41)
[2018-05-20] MEDS ORDERED: LORazepam 2 MG/1 ML VIAL IV STA (02:20)
[2018-05-20] MEDS ORDERED: DEXTROSE 50% 25 GM/50 ML VIAL IV PRN (07:54)
[2018-05-20] MEDS ORDERED: ALBUTEROL 2.5 MG/3 ML NEB RESP TX PRN (07:54)
[2018-05-20] MEDS ORDERED: LORazepam 2 MG/1 ML VIAL IV PRN (07:54)
[2018-05-20] MEDS ORDERED: ONDANSETRON 4 MG/2 ML VIAL IV PRN (07:54)
[2018-05-20] MEDS ORDERED: GLUCAGON 1 MG VIAL IM PRN (07:54)
[2018-05-20] MEDS ORDERED: ACETAMINOPHEN 325 MG TABLET PO PRN (07:54)
[2018-05-20] MEDS: INSULIN LISPRO 100 UNIT/ML SUBCUT SCH ×4 (08:35→21:27)
[2018-05-20] MEDS: SODIUM CHLORIDE 0.9% 1,000 ML IV SCH ×2 (09:21→18:42)
[2018-05-20] MEDS: ENOXAPARIN 40 MG/0.4 ML SYRINGE SUBCUT SCH ×2 (09:24→09:30)
[2018-05-20 09:51] LABS: Apearance,Urine CLEAR (Clear); Bilirubin,Urine Negative (Negative); Blood, Urine Negative (Negative); Glucose,Urine (UA) >=500 mg/dL (Negative); Ketones,Urine 5 mg/dL (Negative); Nitrite,Urine Negative (Negative); Protein,Urine Negative; RBC,Urine <1 /HPF (0-4); Urine Color Straw (Yellow); Urine Specific Gravity 1.008 (1.001-1.035); Urine Urobilinogen < 2.0 EU/DL (0.2-1.0)
[2018-05-21 06:49] LABS: Basophils % 0.7 % (0.0-0.8); Eosinophils # 0.1 10*3/uL (0.0-0.87); Eosinophils % 2.5 % (0.00-10.9); Hematocrit 37.5 VOL% (42.0-52.0); Hemoglobin 12.7 GM/DL (14.0-18.0); Immature Granulocytes % 1.2 %; Immature Granulocytes Absolute 0.05 #; Lymphocytes # 1.2 10*3/uL (1.4-4.0); Lymphocytes % 30.1 % (21.2-54.2); Mean Corpuscular HGB Conc 33.9 GM/DL (32-36); Mean Corpuscular Hemoglobin 31 PG (27-34); Mean Corpuscular Volume 92.4 FL (87-102); Mean Platelet Volume 9.6 FL (9.6-12.0); Monocytes # 0.5 10*3/uL (0.11-0.8); Monocytes % 13.3 % (1.7-12.7); Neutrophils # 2.1 10*3/uL (1.4-7.4); Neutrophils % 52.2 % (38.7-73.9); Platelet Count 199 T/CUMM (130-400); Red Blood Count 4.06 MC/CUMM (3.8-5.5); Red Cell Distribution Width 13.3 % (9.3-17.3); White Blood Count 4.1 T/CUMM (4-12)
[2018-05-21 07:08] LABS: Calcium 8.5 MG/DL (8.5-10.1); Osmolality,Calculated 279.7 MOS/KG (273-304); Potassium 4.2 MMOL/L (3.5-5.1)
[2018-05-21] MEDS ORDERED: chlordiazePOXIDE 25 MG CAPSULE PO PRN (09:47)
[2018-05-21] MEDS ORDERED: ONDANSETRON ODT 4 MG TABLET PO PRN (09:47)
[2018-05-21] MEDS ORDERED: ACETAMINOPHEN 325 MG TABLET PO PRN (09:47)
[2018-05-21] MEDS ORDERED: ALUMINUM/MAGNES/SIMETH MAX STR 30 ML UDCUP PO PRN (09:50)
[2018-05-21] MEDS ORDERED: PANTOPRAZOLE 40 MG TABLET PO SCH (10:00)
[2018-05-21] MEDS ORDERED: THIAMINE 100 MG TABLET PO SCH (10:00)
[2018-05-21] MEDS ORDERED: FAMOTIDINE 20 MG/2 ML VIAL IV SCH (10:00)
[2018-05-21] MEDS ORDERED: FOLIC ACID 1 MG TABLET PO SCH (10:00)
[2018-05-21 10:46] VITALS: BP 130/71
[2018-05-21] MEDS ORDERED: LIPASE/PROTEASE/AMYLASE 4,200 UNITS CAPSULE PO SCH (12:00)
[2018-05-21] MEDS: INSULIN LISPRO 100 UNIT/ML SUBCUT SCH ×2 (12:07→12:08)
[2018-05-21] MEDS: ENOXAPARIN 40 MG/0.4 ML SYRINGE SUBCUT SCH (12:08)
[2018-05-21] MEDS ORDERED: LACTULOSE 20 GM/30 ML UDCUP PO SCH (21:00)
[2018-05-22] MEDS ORDERED: MULTIVITAMIN (CENTRUM) TABLET PO SCH (09:00)
== END 2018-05-21 13:07 | disposition left against medical advice (07) | DRG 72 ==
LOC: N.EDINP 20:30 → N.ED 20:30 → N.EDINP 05-21 12:29 → N.5E 05-21 12:43
PROVIDERS: ADMIT Internal Medicine; ATTEND Internal Medicine